=== PATIENT | female | born 1995 | race Caucasian/White ===

== ENCOUNTER 2017-08-13 02:18 | Emergency (ER) | payer OTHER ==
[~2017-08-13] VITALS: Ht 162.6 cm; Wt 61.2 kg
[2017-08-13 02:22] VITALS: BP 127/69
== END 2017-08-13 02:41 | disposition home or self-care (01) ==
LOC: ER 02:25
DX: J06.9 Acute upper respiratory infection, unspecified (principal); Z60.2 Problems related to living alone
CPT/HCPCS: A4606; Z7502; Z7610